=== PATIENT | female | born 1985 | race Caucasian/White ===

== ENCOUNTER 2024-10-07 14:10 | Outpatient (CLI) | payer BC, SELFPAY ==
[2024-10-09 03:32] LABS: HPV Source Cervix
[2024-10-12 11:29] LABS: Pap Test Digital Imaging Done
== END 2024-10-07 14:11 | disposition home or self-care (01) ==
PROVIDERS: PCP Nurse Practitioner Family; Visit Provider Nurse Practitioner Family
DX: Z01.419 Encounter for gynecological examination (general) (routine) without abnormal findings (principal); R00.2 Palpitations; R53.83 Other fatigue; Z13.6 Encounter for screening for cardiovascular disorders
CPT/HCPCS: 80053; 80061; 84443; 87624; 87625; 88141; 88142; 88175